=== PATIENT | male | born 1990 | race American Indian/Alaskan Native ===

== ENCOUNTER 2021-08-15 10:47 | Day surgery (SDC) | payer SELFPAY ==
[~2021-08-15 10:47] MED LIST: Dexamethasone 4 MG/ML 5 ML MDV ONE; Dexmedetomidine 200 MCG/2 ML SDV ONE; EPINEPHrine 1 MG/ML SDV ONE; Lactated Ringers 1,000 ML IV SCH; Lactated Ringers 1,000 ML ONE; Lidocaine 1% 2 ML ONE; Lidocaine 1%/Sod Bicarbonate in NS 8.4% 1 ML Syringe IDERM PRN; Midazolam 1 MG/ML 2 ML SDV ONE; Ondansetron 4 MG/2 ML SDV ONE; Propofol 200 MG/20 ML SDV ONE; Ropivacaine 0.5% 5 MG/ML 30 ML SDV ONE; Sodium Chloride 0.9% 10 ML Syringe FLUSH PRN; Sodium Chloride 0.9% 10 ML Syringe FLUSH SCH; fentaNYL 100 MCG/2 ML SDV ONE
[2021-08-15] MEDS ORDERED: Propofol 200 MG/20 ML SDV ONE ×3 (11:03→11:28)
[2021-08-15] MEDS ORDERED: Ketamine 500 mg/10 ML MDV ONE (11:07)
[2021-08-15] MEDS ORDERED: Midazolam 1 MG/ML 2 ML SDV ONE (11:09)
[2021-08-15] MEDS ORDERED: Dexmedetomidine 200 MCG/2 ML SDV ONE (11:27)
[2021-08-15] MEDS ORDERED: Bupivacaine 0.5% 30 ML SDV ONE (11:40)
[2021-08-15] MEDS ORDERED: fentaNYL 100 MCG/2 ML SDV ONE (11:47)
[2021-08-15] MEDS ORDERED: HYDROmorphone 0.5 MG/0.5 ML Syringe IVPUSH PRN (12:30)
[2021-08-15] MEDS ORDERED: Ondansetron 4 MG/2 ML SDV IVPUSH PRN (12:30)
[2021-08-15] MEDS ORDERED: fentaNYL 100 MCG/2 ML SDV IVPUSH PRN (12:30)
== END 2021-08-15 13:58 | disposition home or self-care (01) ==
LOC: JD.SDS 10:47
PROVIDERS: ATTEND Orthopaedic Surgery
DX: S82.841A Displaced bimalleolar fracture of right lower leg, initial encounter for closed fracture (principal); Z79.899 Other long term (current) drug therapy; J45.909 Unspecified asthma, uncomplicated; F17.210 Nicotine dependence, cigarettes, uncomplicated
CPT/HCPCS: 27814; 76000; C1713; C1769; C1776; J0171; J1100; J2250; J2405; J2704; J2795; J3010; J3490; J7120; 01480; 64450; 76942